=== PATIENT | female | born 1985 | race Caucasian/White ===

== ENCOUNTER 2022-11-28 06:31 | Day surgery (SDC) | payer OTHER ==
[~2022-11-28 06:31] MED LIST: Lactated Ringers 1,000 ML IV SCH; Lidocaine 1%/Sod Bicarbonate in NS 8.4% 1 ML Syringe IDERM PRN; Sodium Chloride 0.9% 10 ML Syringe FLUSH PRN; Sodium Chloride 0.9% 10 ML Syringe FLUSH SCH
[2022-11-28] MEDS ORDERED: Propofol 200 MG/20 ML SDV ONE (06:53)
[2022-11-28] MEDS ORDERED: fentaNYL 100 MCG/2 ML SDV ONE (06:54)
[2022-11-28] MEDS ORDERED: Ondansetron 4 MG/2 ML SDV ONE (06:54)
[2022-11-28] MEDS ORDERED: Midazolam 1 MG/ML 2 ML SDV ONE (06:54)
[2022-11-28] MEDS ORDERED: Dexamethasone 4 MG/ML 5 ML MDV ONE (06:54)
[2022-11-28] MEDS ORDERED: Lidocaine 1% 5 ML VIAL ONE (06:54)
[2022-11-28] MEDS ORDERED: Scopolamine 1.5 MG Transdermal Patch TOP SCH (07:25)
[2022-11-28] MEDS ORDERED: ceFAZolin 2 GM Vial ONE (07:59)
[2022-11-28] MEDS ORDERED: Ketorolac 30 MG/ML SDV ONE (08:11)
[2022-11-28] MEDS ORDERED: Lactated Ringers 1,000 ML ONE (08:15)
[2022-11-28] MEDS ORDERED: Ondansetron 4 MG/2 ML SDV IVPUSH PRN ×2 (08:25→08:38)
[2022-11-28] MEDS ORDERED: fentaNYL 100 MCG/2 ML SDV IVPUSH PRN (08:38)
[2022-11-28] MEDS ORDERED: HYDROmorphone 0.5 MG/0.5 ML Syringe IVPUSH PRN (08:38)
[2022-11-28 10:01] VITALS: BP 109/73; PULSE 72
[2022-11-28] MEDS ORDERED: Ketorolac 30 MG/ML SDV IVPUSH SCH (14:30)
[2022-11-28] MEDS ORDERED: Ibuprofen 600 MG Tab PO PRN (20:30)
== END 2022-11-28 10:30 | disposition home or self-care (01) ==
LOC: JD.SDS 06:31
PROVIDERS: ATTEND Obstetrics & Gynecology
DX: N84.0 Polyp of corpus uteri (principal); K21.9 Gastro-esophageal reflux disease without esophagitis; Z79.899 Other long term (current) drug therapy
CPT/HCPCS: 36415; 58563; 81003; 81025; 85025; A9270; J0690; J1100; J1885; J2250; J2405; J2704; J3010; J7120; 00952; J3490